=== PATIENT | male | born 2000 | race Caucasian/White ===

== ENCOUNTER 2023-05-07 15:46 | Emergency (ER) | payer OTHER ==
[~2023-05-07] VITALS: Ht 177.8 cm; Wt 94.8 kg
[2023-05-07] MEDS ORDERED: AMOX TR-K CLV1 EAC1 PO (19:54)
[2023-05-07 20:19] VITALS: BP 145/87
== END 2023-05-07 20:21 | disposition home or self-care (01) ==
LOC: ED 15:46
DX: S61.432A Puncture wound without foreign body of left hand, initial encounter (principal); W26.8XXA Contact with other sharp object(s), not elsewhere classified, initial encounter
CPT/HCPCS: 73130; 99283-25